=== PATIENT | male | born 1985 | race Two or more races ===

== ENCOUNTER 2025-09-01 14:06 | Outpatient (CLI) | payer OTHER | END 2025-09-01 14:07 | disposition home or self-care (01) | LOC: NAV RAD 14:06 | PROVIDERS: ATTEND Preventive Medicine Public Health & General Preventive Medicine | DX: Z11.7 Encounter for testing for latent tuberculosis infection (principal); R76.11 Nonspecific reaction to tuberculin skin test without active tuberculosis | CPT/HCPCS: 71046 ==